=== PATIENT | female | born 1950 | race Caucasian/White ===

== ENCOUNTER 2017-03-02 21:49 | Emergency (ER) | payer MEDICARE ==
--- NOTE | 2017-03-02 22:27 | RADIOLOGY REPORT (SQ) ---
EXAM DESCRIPTION: WRIST LEFT 3 VIEWS COMPLETED DATE/TIME: 03/02/2017 10:18 pm REASON FOR STUDY: pain COMPARISON: None. NUMBER OF VIEWS: Three views. TECHNIQUE: AP, lateral, and oblique radiographic images acquired of the left wrist. LIMITATIONS: None. FINDINGS: MINERALIZATION: Normal. BONES: Impacted posteriorly displaced distal radial fracture. Ulnar styloid fracture. SOFT TISSUES: No soft tissue swelling. No foreign body. OTHER: No other significant finding. IMPRESSION: Collies fracture. TECHNICAL DOCUMENTATION: JOB ID: [id number] [employer]- All Rights Reserved
[2017-03-02] MEDS ORDERED: BUPIVACAINE HCL 0.25% /EPINEPHRINE INJ/PF 30 ML SDV INJ ONE (22:30)
--- NOTE | 2017-03-02 22:31 | ER Document Report ---
ED Hand/Wrist Injury - General Chief Complaint: L wrist injury Stated Complaint: LEFT WRIST PAIN Time Seen by Provider: 03/02/17 22:25 Mode of Arrival: Ambulatory Information source: Patient TRAVEL OUTSIDE OF THE [place] IN LAST 30 DAYS: No - HPI Patient complains to provider of: Left wrist injury Injury to: Wrist Onset: Just prior to arrival Where: Home, Long Term Quality of pain: Achy Severity: Moderate Pain Level: 4 Context: Fall Notes: Patient is a 66-year-old female with a history of hypertension who presents to the emergency room complaining of left wrist injury that occurred just prior to arrival, patient is visiting from [place], she tripped and nearly fell, catching herself with the left wrist, causing her injury, denies pain or injury elsewhere - Related Data Allergies/Adverse Reactions: No Known Allergies Allergy (Verified 03/02/17 22:28) Past Medical History - General Information source: Patient - Social History Smoking Status: Never Smoker Family History: Reviewed & Not Pertinent Renal/ Medical History: Denies: Hx Peritoneal Dialysis Review of Systems - Review of Systems Constitutional: No symptoms reported EENT: No symptoms reported Cardiovascular: No symptoms reported Respiratory: No symptoms reported Gastrointestinal: No symptoms reported Genitourinary: No symptoms reported Female Genitourinary: No symptoms reported Musculoskeletal: See HPI Skin: No symptoms reported Hematologic/Lymphatic: No symptoms reported Neurological/Psychological: No symptoms reported -: Yes All other systems reviewed and negative Physical Exam - Vital signs Vitals: Temp Pulse Resp BP Pulse Ox 98 F 69 13 127/76 H 99 03/02/17 22:11 03/02/17 22:11 03/02/17 22:11 03/02/17 22:11 03/02/17 22:11 - Notes Notes: - General General appearance: Appears well, Alert In distress: None - HEENT Head: Normocephalic, Atraumatic Eyes: Normal Conjunctiva: Normal Extraocular movements intact: Yes Eyelashes: Normal Pupils: PERRL - Respiratory Respiratory status: No respiratory distress - Cardiovascular Rhythm: Regular - Abdominal Inspection: Normal - Back Back: Normal - Extremities General upper extremity: Wrist deformity, 2+ DP pulses, distal sensation and motor is intact with brisk capillary refill General lower extremity: Normal inspection - Neurological Neuro grossly intact: Yes Orientation: AAOx4 [place] Coma Scale Eye Opening: Spontaneous [place] Coma Scale Verbal: Oriented [place] Coma Scale Motor: Obeys Commands [place] Coma Scale Total: 15 - Psychological Associated symptoms: Normal affect, Normal mood - Skin Skin Temperature: Warm Skin Moisture: Dry Skin Color: Normal Course - Re-evaluation Re-evalutation: 03/03/17 00:47 Hematoma block was performed, once patient was adequately anesthetized gentle manipulation was performed, and she was placed in a volar wrist splint, advised to follow-up with orthopedics when she returns home to [place] or return if symptoms worsen, patient acknowledges understanding and agreement with this plan - Vital Signs Vital signs: Temp Pulse Resp BP Pulse Ox 98.7 F 71 13 123/81 97 03/03/17 00:24 03/03/17 00:24 03/03/17 00:24 03/03/17 00:03/03/17 00:24 - Diagnostic Test Radiology reviewed: Image reviewed, Reports reviewed Procedures - Immobilization Left Wrist Time completed: 23:55 Pre-Proc Neuro Vasc Exam: Normal Immobilizer type: Volar splint Performed by: Provider Post-Proc Neuro Vasc Exam: Normal Alignment checked and good: Yes - Joint Reduction/Fracture Care Left Wrist Time completed: 23:55 Consent obtained: Yes Conscious sedation: No Pre-procedure NV exam: Yes Fracture: Closed Manipulation comment: gentle traction and dorsal pressure Post-procedure NV exam: Yes Reduction attempts: 2 Complications: No Discharge - Discharge Clinical Impression: Colles' fracture of left radius Qualifiers: Encounter type: initial encounter Fracture type: closed Qualified Code(s): S52.532A - Colles' fracture of left radius, initial encounter for closed fracture Condition: Stable Disposition: HOME, SELF-CARE Instructions: Fractured Radius ([facility]), Temporary Splint ([facility]), Ice & Elevation ( [facility]) Additional Instructions: Follow up with your primary care provider and an orthopedic surgeon in one to 2 days. Return to the emergency room immediately if symptoms worsen or any additional concerns. Ice and elevate the affected extremity. Prescriptions: Hydrocodone/Acetaminophen [Hydrocodon-Acetaminophen 5-325] 1 each PO Q6 #20 tablet Referrals: JULIO HESTER MD [ACTIVE STAFF] - Follow up as needed
[2017-03-02] MEDS ORDERED: BUPIVACAINE HCL 0.25% /EPINEPHRINE INJ/PF 30 ML SDV ONE (22:56)
[2017-03-03 00:28] VITALS: BP 123/81
== END 2017-03-03 00:11 | disposition home or self-care (01) ==
LOC: ER 21:49
PROC: 0PSJXZZ Reposition Left Radius, External Approach (ICD-10-PCS; principal; 2017-03-02)
DX: S52.532A Colles' fracture of left radius, initial encounter for closed fracture (principal); M25.532 Pain in left wrist; I10 Essential (primary) hypertension; W18.40XA Slipping, tripping and stumbling without falling, unspecified, initial encounter
CPT/HCPCS: 99283; 73110; 25605; J3490